=== PATIENT | male | born 1975 | race Caucasian/White ===

== ENCOUNTER 2018-07-10 18:02 | Emergency (ER) | payer SELFPAY ==
[~2018-07-10] VITALS: Ht 182.9 cm; Wt 87.5 kg
[2018-07-10] MEDS ORDERED: KETOROLAC TROME10 MG PO (19:25)
[2018-07-10] MEDS ORDERED: BACLOFEN10 MG PO (19:25)
== END 2018-07-10 19:42 | disposition home or self-care (01) ==
LOC: ED 18:02
DX: S16.1XXA Strain of muscle, fascia and tendon at neck level, initial encounter (principal); V49.9XXA Car occupant (driver) (passenger) injured in unspecified traffic accident, initial encounter; Z87.891 Personal history of nicotine dependence
CPT/HCPCS: 71046; 72040; 73502; 96372; 99285; J1885